=== PATIENT | female | born 1940 | race Asian ===

== ENCOUNTER 2019-03-20 11:30 | Inpatient (IN) | payer OTHER, MEDICAID ==
[~2019-03-20] VITALS: Ht 160 cm; Wt 61.2 kg
[2019-03-20 11:40] VITALS: BP_SYST 130
[2019-03-20] MEDS ORDERED: IPRATROPIUM/ALBUTEROL SULFATE 3 ML AMPUL.NEB (DUONEB) INH ONE ×3 (11:45→14:00)
[2019-03-20 12:06] LABS: HEMATOCRIT 39.5 % (36-48); HEMOGLOBIN 12.5 g/dL (12.0-16.0); MEAN CORPUSCULAR HEMOGLOBIN 21 pg (27-31); MEAN CORPUSCULAR HGB CONC 32 % (32-36); MEAN CORPUSCULAR VOLUME 65 fL (79.0-98.0); PLATELET COUNT (AUTO) 261 K/uL (130-430); RED BLOOD CELL COUNT(AUTO) 6.07 MIL/uL (4.2-6.2); RED CELL DISTRIBUTION WIDTH 15.6 % (9.0-15.0); WHITE BLOOD COUNT (AUTO) 6.8 K/uL (4.8-10.8)
[2019-03-20 12:48] LABS: ANION GAP 4 (5-15); CALCIUM 8.9 mg/dL (8.4-11.0); CHLORIDE 105 mmol/L (98-107); CREATININE 0.58 mg/dL (0.55-1.30); GLUCOSE 103 mg/dL (70-99); POTASSIUM 4.1 mmol/L (3.5-5.1); SODIUM SERUM 142 mmol/L (136-145); UREA NITROGEN, BLOOD 13 mg/dL (8-21)
[2019-03-20 12:54] LABS: ALANINE AMINOTRANSFERASE 31 U/L (12-78); ALBUMIN 2.9 g/dL (3.4-4.8); ASPARTATE AMINOTRANSFERASE 26 U/L (10-37); TOTAL BILIRUBIN 0.8 mg/dL (0.0-1.0)
[2019-03-20] MEDS ORDERED: PREDNISONE 20 MG TABLET PO ONE (13:15)
[2019-03-20] MEDS ORDERED: AZITHROMYCIN 250 MG TABLET PO ONE (13:15)
[2019-03-20] MEDS ORDERED: NACL 0.9% 1,000 ML IV ONE (13:15)
[2019-03-20 13:20] LABS: ATYPICAL LYMPHOCYTES % 0 % (0-0); BAND % (MANUAL) 0 % (0-6); BASOPHILS % (MANUAL) 0 % (0-2); EOSINOPHILS % (MANUAL) 2 % (0-7); LYMPHOCYTES % (MANUAL) 36 % (20-46); MONOCYTES % (MANUAL) 10 % (0-11)
[2019-03-20 13:26] LABS: BILIRUBIN,URINE NEGATIVE (NEGATIVE); CLARITY/URINE SLIGHTLY CLOUDY (CLEAR); COLOR,URINE YELLOW (YELLOW); GLUCOSE,URINE NEGATIVE (NEGATIVE); KETONES,URINE NEGATIVE (NEGATIVE); PH,URINE 7.5 (5.0-8.0); PROTEIN URINE NEGATIVE (NEGATIVE)
[2019-03-20 13:27] LABS: BLOOD, URINE NEGATIVE (NEGATIVE); LEUKOCYTE ESTERASE ,URINE 1+ (NEGATIVE); NITRITE, URINE NEGATIVE (NEGATIVE)
[2019-03-20 13:28] LABS: BACTERIA,URINE FEW /HPF (None Seen); RBC,URINE 0-3 /HPF (0-3); WBC,URINE 20-50 /HPF (0-3)
[2019-03-20 13:29] LABS: MUCUS,URINE 1+ /LPF (None Seen)
[2019-03-20] MEDS ORDERED: methylPREDNISolone SOD SUCC/PF 62.5 MG/ML VIAL IVP ONE (13:30)
[2019-03-20] MEDS ORDERED: AZITHROMYCIN 500 MG in NS 250 ML IV ONE (13:30)
[2019-03-20] MEDS ORDERED: AZITHROMYCIN 500 MG/VIAL (ZITHROMAX) IV ONE (13:53)
[2019-03-20 14:31] VITALS: BP_SYST 135
[2019-03-20] MEDS ORDERED: SENN-278 PO (14:37)
[2019-03-20] MEDS ORDERED: MEMA10TA PO (14:40)
[2019-03-20] MEDS ORDERED: DOCU-144 PO (14:40)
[2019-03-20] MEDS ORDERED: DEPAK250 PO (14:40)
[2019-03-20] MEDS ORDERED: OMEG1CAP PO (14:43)
[2019-03-20] MEDS ORDERED: SYN75 PO (14:43)
[2019-03-20] MEDS ORDERED: MULT9LIQ5 PO (14:43)
[2019-03-20] MEDS: D5/0.45 NS 1,000 ML IV SCH (16:21)
[2019-03-20] MEDS: cefTRIAXone 1 GM in D5W 50 ML IV SCH (17:58)
[2019-03-20 20:00] VITALS: BP_SYST 138
[2019-03-20 20:15] VITALS: BP_SYST 135
[2019-03-20] MEDS: methylPREDNISolone SOD SUCC 40 MG/ML VIAL IVP SCH (21:11)
[2019-03-20] MEDS ORDERED: IPRATROPIUM/ALBUTEROL SULFATE 120 PUFFS/4 GM INH INH SCH (22:00)
[2019-03-20] MEDS: IPRATROPIUM/ALBUTEROL SULFATE 3 ML AMPUL.NEB (DUONEB) INH PRN (23:24)
[2019-03-21 01:02] VITALS: BP_SYST 125
[2019-03-21] MEDS: D5/0.45 NS 1,000 ML IV SCH ×2 (03:44→21:46)
[2019-03-21] MEDS: methylPREDNISolone SOD SUCC 40 MG/ML VIAL IVP SCH ×3 (05:20→21:45)
[2019-03-21 07:40] VITALS: BP_SYST 147
[2019-03-21 07:41] LABS: BASOPHILS % (AUTO) 0.3 % (0.0-2.0); HEMATOCRIT 36.4 % (36-48); HEMOGLOBIN 11.5 g/dL (12.0-16.0); LYMPHOCYTES # (AUTO) 0.9 K/uL (1.0-5.5); LYMPHOCYTES % (AUTO) 20.7 % (20.5-51.5); MEAN CORPUSCULAR HEMOGLOBIN 21 pg (27-31); MEAN CORPUSCULAR HGB CONC 32 % (32-36); MEAN CORPUSCULAR VOLUME 65 fL (79.0-98.0); MONOCYTES # (AUTO) 0.2 K/uL (0.0-1.0); MONOCYTES % (AUTO) 4.5 % (1.7-9.3); NEUTROPHILS # (AUTO) 3.1 K/uL (1.8-7.7); NEUTROPHILS % (AUTO) 74.5 % (40.0-70.0); PLATELET COUNT (AUTO) 262 K/uL (130-430); RED BLOOD CELL COUNT(AUTO) 5.58 MIL/uL (4.2-6.2); RED CELL DISTRIBUTION WIDTH 15.7 % (9.0-15.0); WHITE BLOOD COUNT (AUTO) 4.1 K/uL (4.8-10.8)
[2019-03-21 07:50] LABS: ANION GAP 6 (5-15); CHLORIDE 105 mmol/L (98-107); CREATININE 0.57 mg/dL (0.55-1.30); GLUCOSE 188 mg/dL (70-99); POTASSIUM 3.8 mmol/L (3.5-5.1); SODIUM SERUM 140 mmol/L (136-145); UREA NITROGEN, BLOOD 11 mg/dL (8-21)
[2019-03-21] MEDS: AZITHROMYCIN 500 MG in NS 250 ML IV SCH (10:09)
[2019-03-21 10:14] LABS: FREE T4 (FREE THYROXINE) 1.2 ng/dl (0.8-1.5); THYROID STIMULATING HORMONE 0.71 uIu/mL (0.36-3.74)
[2019-03-21 11:07] VITALS: BP_SYST 125
[2019-03-21 15:41] VITALS: BP_SYST 132
[2019-03-21] MEDS: cefTRIAXone 1 GM in D5W 50 ML IV SCH (16:28)
[2019-03-21 20:00] VITALS: BP_SYST 134
[2019-03-22] VITALS: BP_SYST 132
[2019-03-22] MEDS: IPRATROPIUM/ALBUTEROL SULFATE 3 ML AMPUL.NEB (DUONEB) INH PRN (06:11)
[2019-03-22] MEDS: methylPREDNISolone SOD SUCC 40 MG/ML VIAL IVP SCH ×3 (06:20→23:20)
[2019-03-22 07:49] LABS: BASOPHILS % (AUTO) 0.4 % (0.0-2.0); HEMATOCRIT 38.2 % (36-48); HEMOGLOBIN 12.3 g/dL (12.0-16.0); MEAN CORPUSCULAR HEMOGLOBIN 21 pg (27-31); MEAN CORPUSCULAR HGB CONC 32 % (32-36); MEAN CORPUSCULAR VOLUME 65 fL (79.0-98.0); MONOCYTES # (AUTO) 0.3 K/uL (0.0-1.0); MONOCYTES % (AUTO) 6.6 % (1.7-9.3); NEUTROPHILS # (AUTO) 3.7 K/uL (1.8-7.7); PLATELET COUNT (AUTO) 311 K/uL (130-430); RED BLOOD CELL COUNT(AUTO) 5.89 MIL/uL (4.2-6.2); RED CELL DISTRIBUTION WIDTH 15.3 % (9.0-15.0)
[2019-03-22 07:52] VITALS: BP_SYST 123
[2019-03-22] MEDS: AZITHROMYCIN 500 MG in NS 250 ML IV SCH (08:03)
[2019-03-22 08:13] LABS: ANION GAP 3 (5-15); CALCIUM 8.3 mg/dL (8.4-11.0); CHLORIDE 103 mmol/L (98-107); CREATININE 0.55 mg/dL (0.55-1.30); GLUCOSE 173 mg/dL (70-99); POTASSIUM 3.3 mmol/L (3.5-5.1); SODIUM SERUM 134 mmol/L (136-145); UREA NITROGEN, BLOOD 10 mg/dL (8-21)
[2019-03-22] MEDS ORDERED: FUROSEMIDE 20 MG/2 ML VIAL IVP ONE (11:00)
[2019-03-22] MEDS: D5/0.45 NS 1,000 ML IV SCH (11:04)
[2019-03-22 11:11] VITALS: BP_SYST 137
[2019-03-22 15:36] VITALS: BP_SYST 144
[2019-03-22] MEDS: cefTRIAXone 1 GM in D5W 50 ML IV SCH (16:32)
[2019-03-22] MEDS ORDERED: POTASSIUM CHLORIDE 20 MEQ/PKT PACKET PO ONE (17:30)
[2019-03-22] MEDS: PANTOPRAZOLE SODIUM 40 MG/VIAL (PROTONIX) IVP SCH (18:15)
[2019-03-23] VITALS (7 sets, daily range): BP systolic 148–158
[2019-03-23] MEDS: methylPREDNISolone SOD SUCC 40 MG/ML VIAL IVP SCH ×3 (06:37→20:43)
[2019-03-23 08:32] LABS: ANION GAP 6 (5-15); CALCIUM 7.8 mg/dL (8.4-11.0); CHLORIDE 103 mmol/L (98-107); CREATININE 0.56 mg/dL (0.55-1.30); GLUCOSE 142 mg/dL (70-99); POTASSIUM 3.3 mmol/L (3.5-5.1); SODIUM SERUM 139 mmol/L (136-145); UREA NITROGEN, BLOOD 12 mg/dL (8-21)
[2019-03-23] MEDS: PANTOPRAZOLE SODIUM 40 MG/VIAL (PROTONIX) IVP SCH (09:13)
[2019-03-23] MEDS: AZITHROMYCIN 500 MG in NS 250 ML IV SCH (09:13)
[2019-03-23] MEDS: D5/0.45 NS 1,000 ML IV SCH (09:24)
[2019-03-23] MEDS: IPRATROPIUM/ALBUTEROL SULFATE 3 ML AMPUL.NEB (DUONEB) INH PRN (14:13)
[2019-03-23] MEDS: cefTRIAXone 1 GM in D5W 50 ML IV SCH (15:56)
[2019-03-23] MEDS ORDERED: POTASSIUM CHLORIDE 20 MEQ/PKT PACKET PO ONE (16:00)
[2019-03-24] MEDS: cloNIDine HCL 0.1 MG TABLET PO PRN (00:51)
[2019-03-24 00:59] VITALS: BP_SYST 150
[2019-03-24] MEDS: methylPREDNISolone SOD SUCC 40 MG/ML VIAL IVP SCH ×3 (06:48→22:23)
[2019-03-24 07:31] LABS: BASOPHILS % (AUTO) 0.4 % (0.0-2.0); EOSINOPHILS % (AUTO) 0.1 % (0.0-4.0); HEMATOCRIT 39.9 % (36-48); HEMOGLOBIN 12.3 g/dL (12.0-16.0); LYMPHOCYTES # (AUTO) 0.8 K/uL (1.0-5.5); LYMPHOCYTES % (AUTO) 10.2 % (20.5-51.5); MEAN CORPUSCULAR HEMOGLOBIN 20 pg (27-31); MEAN CORPUSCULAR HGB CONC 31 % (32-36); MEAN CORPUSCULAR VOLUME 65 fL (79.0-98.0); NEUTROPHILS # (AUTO) 5.7 K/uL (1.8-7.7); NEUTROPHILS % (AUTO) 76.3 % (40.0-70.0); PLATELET COUNT (AUTO) 395 K/uL (130-430); RED BLOOD CELL COUNT(AUTO) 6.13 MIL/uL (4.2-6.2); RED CELL DISTRIBUTION WIDTH 15.8 % (9.0-15.0); WHITE BLOOD COUNT (AUTO) 7.4 K/uL (4.8-10.8)
[2019-03-24 08:00] VITALS: BP_SYST 139
[2019-03-24] MEDS: D5/0.45 NS 1,000 ML IV SCH ×2 (08:00→22:33)
[2019-03-24 08:07] LABS: ANION GAP 3 (5-15); CALCIUM 8.2 mg/dL (8.4-11.0); CHLORIDE 103 mmol/L (98-107); CREATININE 0.44 mg/dL (0.55-1.30); GLUCOSE 176 mg/dL (70-99); POTASSIUM 3.6 mmol/L (3.5-5.1); SODIUM SERUM 134 mmol/L (136-145); UREA NITROGEN, BLOOD 15 mg/dL (8-21)
[2019-03-24] MEDS: PANTOPRAZOLE SODIUM 40 MG/VIAL (PROTONIX) IVP SCH (09:13)
[2019-03-24] MEDS: AZITHROMYCIN 500 MG in NS 250 ML IV SCH (09:13)
[2019-03-24] MEDS: POTASSIUM CHLORIDE 20 MEQ/PKT PACKET PO SCH (09:14)
[2019-03-24] MEDS ORDERED: amLODIPine BESYLATE 5 MG TABLET PO ONE (09:45)
[2019-03-24 12:37] VITALS: BP_SYST 153
[2019-03-24] MEDS: IPRATROPIUM/ALBUTEROL SULFATE 3 ML AMPUL.NEB (DUONEB) INH PRN (14:19)
[2019-03-24] MEDS: cefTRIAXone 1 GM in D5W 50 ML IV SCH (15:55)
[2019-03-24 16:49] VITALS: BP_SYST 146
[2019-03-24 20:00] VITALS: BP_SYST 136
[2019-03-25 00:17] VITALS: BP_SYST 115
[2019-03-25] MEDS: methylPREDNISolone SOD SUCC 40 MG/ML VIAL IVP SCH (06:45)
[2019-03-25 07:26] LABS: BASOPHILS % (AUTO) 0.3 % (0.0-2.0); HEMATOCRIT 44.1 % (36-48); LYMPHOCYTES # (AUTO) 1.3 K/uL (1.0-5.5); LYMPHOCYTES % (AUTO) 12.3 % (20.5-51.5); MEAN CORPUSCULAR HEMOGLOBIN 21 pg (27-31); MEAN CORPUSCULAR HGB CONC 32 % (32-36); MEAN CORPUSCULAR VOLUME 65 fL (79.0-98.0); MONOCYTES # (AUTO) 0.7 K/uL (0.0-1.0); MONOCYTES % (AUTO) 6.4 % (1.7-9.3); NEUTROPHILS # (AUTO) 8.4 K/uL (1.8-7.7); PLATELET COUNT (AUTO) 443 K/uL (130-430); RED BLOOD CELL COUNT(AUTO) 6.77 MIL/uL (4.2-6.2); WHITE BLOOD COUNT (AUTO) 10.4 K/uL (4.8-10.8)
[2019-03-25 07:53] LABS: ANION GAP 6 (5-15); CALCIUM 8.1 mg/dL (8.4-11.0); CHLORIDE 99 mmol/L (98-107); CREATININE 0.62 mg/dL (0.55-1.30); GLUCOSE 196 mg/dL (70-99); POTASSIUM 4.5 mmol/L (3.5-5.1); SODIUM SERUM 133 mmol/L (136-145); UREA NITROGEN, BLOOD 14 mg/dL (8-21)
[2019-03-25 08:00] VITALS: BP_SYST 151
[2019-03-25] MEDS: PANTOPRAZOLE SODIUM 40 MG/VIAL (PROTONIX) IVP SCH (09:24)
[2019-03-25] MEDS: AZITHROMYCIN 500 MG in NS 250 ML IV SCH (09:24)
[2019-03-25] MEDS: POTASSIUM CHLORIDE 20 MEQ/PKT PACKET PO SCH (09:24)
[2019-03-25 11:20] VITALS: BP_SYST 144
[2019-03-25 15:55] VITALS: BP_SYST 147
[2019-03-25] MEDS: cefTRIAXone 1 GM in D5W 50 ML IV SCH (16:58)
[2019-03-25 20:00] VITALS: BP_SYST 146
[2019-03-26] MEDS: D5/0.45 NS 1,000 ML IV SCH (00:43)
[2019-03-26 01:04] VITALS: BP_SYST 141
[2019-03-26] MEDS: methylPREDNISolone SOD SUCC 40 MG/ML VIAL IVP SCH (06:04)
[2019-03-26 07:32] LABS: INR 1.1 (0.8-1.2); PROTHROMBIN TIME 11.2 SECS (9.5-12.5)
[2019-03-26 07:42] LABS: ALANINE AMINOTRANSFERASE 128 U/L (12-78); ALBUMIN 2.4 g/dL (3.4-4.8); ANION GAP 4 (5-15); ASPARTATE AMINOTRANSFERASE 49 U/L (10-37); CHLORIDE 100 mmol/L (98-107); CREATININE 0.48 mg/dL (0.55-1.30); GLUCOSE 94 mg/dL (70-99); POTASSIUM 3.9 mmol/L (3.5-5.1); SODIUM SERUM 133 mmol/L (136-145); TOTAL BILIRUBIN 0.7 mg/dL (0.0-1.0); UREA NITROGEN, BLOOD 20 mg/dL (8-21)
[2019-03-26 08:00] VITALS: BP_SYST 106
[2019-03-26] MEDS: POTASSIUM CHLORIDE 20 MEQ/PKT PACKET PO SCH (09:10)
[2019-03-26] MEDS: PANTOPRAZOLE SODIUM 40 MG/VIAL (PROTONIX) IVP SCH (09:11)
[2019-03-26 11:14] VITALS: BP_SYST 151
[2019-03-26 15:13] VITALS: BP_SYST 146
[2019-03-26] MEDS: cefTRIAXone 1 GM in D5W 50 ML IV SCH (16:26)
[2019-03-26 17:44] VITALS: BP_SYST 151
[2019-03-26 20:00] VITALS: BP_SYST 149
[2019-03-27] VITALS: BP_SYST 138
[2019-03-27] MEDS: methylPREDNISolone SOD SUCC 40 MG/ML VIAL IVP SCH (05:46)
[2019-03-27 07:42] LABS: ANION GAP 5 (5-15); CALCIUM 8.5 mg/dL (8.4-11.0); CHLORIDE 98 mmol/L (98-107); CREATININE 0.49 mg/dL (0.55-1.30); GLUCOSE 81 mg/dL (70-99); POTASSIUM 4.5 mmol/L (3.5-5.1); SODIUM SERUM 134 mmol/L (136-145)
[2019-03-27 07:57] LABS: UREA NITROGEN, BLOOD 16 mg/dL (8-21)
[2019-03-27] MEDS: D5/0.45 NS 1,000 ML IV SCH (08:00)
[2019-03-27 08:01] LABS: HEMOGLOBIN 14.2 g/dL (12.0-16.0); MEAN CORPUSCULAR HEMOGLOBIN 20 pg (27-31); MEAN CORPUSCULAR HGB CONC 31 % (32-36); MEAN CORPUSCULAR VOLUME 66 fL (79.0-98.0); PLATELET COUNT (AUTO) 410 K/uL (130-430); RED BLOOD CELL COUNT(AUTO) 7.02 MIL/uL (4.2-6.2); RED CELL DISTRIBUTION WIDTH 15.9 % (9.0-15.0); WHITE BLOOD COUNT (AUTO) 12.3 K/uL (4.8-10.8)
[2019-03-27] MEDS: PANTOPRAZOLE SODIUM 40 MG/VIAL (PROTONIX) IVP SCH (08:08)
[2019-03-27] MEDS: POTASSIUM CHLORIDE 20 MEQ/PKT PACKET PO SCH (08:09)
[2019-03-27 08:10] VITALS: BP_SYST 172
[2019-03-27] MEDS: cloNIDine HCL 0.1 MG TABLET PO PRN (08:42)
[2019-03-27 08:43] LABS: ATYPICAL LYMPHOCYTES % 0 % (0-0); BAND % (MANUAL) 0 % (0-6); LYMPHOCYTES % (MANUAL) 26 % (20-46)
[2019-03-27 08:44] LABS: BASOPHILS % (MANUAL) 0 % (0-2); EOSINOPHILS % (MANUAL) 2 % (0-7); MONOCYTES % (MANUAL) 8 % (0-11)
[2019-03-27 12:30] VITALS: BP_SYST 132
[2019-03-27] MEDS: LEVOFLOXACIN 500 MG/D5W 100 ML IV SCH (14:44)
[2019-03-27 16:30] VITALS: BP_SYST 92
[2019-03-27 20:10] VITALS: BP_SYST 103
[2019-03-27] MEDS: IPRATROPIUM/ALBUTEROL SULFATE 3 ML AMPUL.NEB (DUONEB) INH PRN (22:03)
[2019-03-28 00:29] VITALS: BP_SYST 156
[2019-03-28] MEDS: IPRATROPIUM/ALBUTEROL SULFATE 3 ML AMPUL.NEB (DUONEB) INH PRN ×4 (02:17→20:02)
[2019-03-28] MEDS: methylPREDNISolone SOD SUCC 40 MG/ML VIAL IVP SCH (05:22)
[2019-03-28 07:34] LABS: ANION GAP 1 (5-15); CALCIUM 8.4 mg/dL (8.4-11.0); CHLORIDE 102 mmol/L (98-107); CREATININE 0.74 mg/dL (0.55-1.30); GLUCOSE 110 mg/dL (70-99); POTASSIUM 4.8 mmol/L (3.5-5.1); SODIUM SERUM 137 mmol/L (136-145); UREA NITROGEN, BLOOD 39 mg/dL (8-21)
[2019-03-28 07:37] LABS: EOSINOPHILS # (AUTO) 0.2 K/uL (0.0-0.4); MEAN CORPUSCULAR HEMOGLOBIN 20 pg (27-31)
[2019-03-28 07:58] LABS: BASOPHILS % (AUTO) 0.2 % (0.0-2.0); EOSINOPHILS % (AUTO) 1.6 % (0.0-4.0); HEMATOCRIT 40.1 % (36-48); HEMOGLOBIN 12.5 g/dL (12.0-16.0); LYMPHOCYTES # (AUTO) 2.9 K/uL (1.0-5.5); LYMPHOCYTES % (AUTO) 23.8 % (20.5-51.5); MEAN CORPUSCULAR HGB CONC 31 % (32-36); MEAN CORPUSCULAR VOLUME 65 fL (79.0-98.0); MONOCYTES # (AUTO) 1.2 K/uL (0.0-1.0); NEUTROPHILS % (AUTO) 64.4 % (40.0-70.0); PLATELET COUNT (AUTO) 395 K/uL (130-430); RED BLOOD CELL COUNT(AUTO) 6.18 MIL/uL (4.2-6.2); RED CELL DISTRIBUTION WIDTH 15.7 % (9.0-15.0); WHITE BLOOD COUNT (AUTO) 12.4 K/uL (4.8-10.8)
[2019-03-28 08:00] VITALS: BP_SYST 128
[2019-03-28] MEDS: PANTOPRAZOLE SODIUM 40 MG/VIAL (PROTONIX) IVP SCH (08:50)
[2019-03-28] MEDS: D5/0.45 NS 1,000 ML IV SCH ×2 (08:50→23:13)
[2019-03-28] MEDS: POTASSIUM CHLORIDE 20 MEQ/PKT PACKET PO SCH ×2 (08:50→08:55)
[2019-03-28 11:14] VITALS: BP_SYST 120
[2019-03-28] MEDS: LEVOFLOXACIN 500 MG/D5W 100 ML IV SCH (14:32)
[2019-03-28 15:25] VITALS: BP_SYST 137
[2019-03-28 20:50] VITALS: BP_SYST 105
[2019-03-29] MEDS: IPRATROPIUM/ALBUTEROL SULFATE 3 ML AMPUL.NEB (DUONEB) INH PRN ×3 (00:02→13:29)
[2019-03-29 00:11] VITALS: BP_SYST 109
[2019-03-29] MEDS: methylPREDNISolone SOD SUCC 40 MG/ML VIAL IVP SCH (05:06)
[2019-03-29 07:08] LABS: EOSINOPHILS # (AUTO) 0.1 K/uL (0.0-0.4); LYMPHOCYTES # (AUTO) 1.4 K/uL (1.0-5.5); NEUTROPHILS # (AUTO) 6.6 K/uL (1.8-7.7); RED CELL DISTRIBUTION WIDTH 15.8 % (9.0-15.0); WHITE BLOOD COUNT (AUTO) 8.9 K/uL (4.8-10.8)
[2019-03-29 07:27] LABS: BASOPHILS % (AUTO) 0.2 % (0.0-2.0); EOSINOPHILS % (AUTO) 1.3 % (0.0-4.0); HEMATOCRIT 38.7 % (36-48); HEMOGLOBIN 12.2 g/dL (12.0-16.0); MEAN CORPUSCULAR HEMOGLOBIN 20 pg (27-31); MEAN CORPUSCULAR HGB CONC 32 % (32-36); MEAN CORPUSCULAR VOLUME 65 fL (79.0-98.0); MONOCYTES # (AUTO) 0.8 K/uL (0.0-1.0); MONOCYTES % (AUTO) 8.7 % (1.7-9.3); NEUTROPHILS % (AUTO) 73.8 % (40.0-70.0); PLATELET COUNT (AUTO) 342 K/uL (130-430); RED BLOOD CELL COUNT(AUTO) 5.96 MIL/uL (4.2-6.2)
[2019-03-29 07:44] LABS: ANION GAP 3 (5-15); CALCIUM 7.9 mg/dL (8.4-11.0); CHLORIDE 101 mmol/L (98-107); CREATININE 0.51 mg/dL (0.55-1.30); GLUCOSE 117 mg/dL (70-99); SODIUM SERUM 136 mmol/L (136-145); UREA NITROGEN, BLOOD 16 mg/dL (8-21)
[2019-03-29 08:00] VITALS: BP_SYST 121
[2019-03-29] MEDS: POTASSIUM CHLORIDE 20 MEQ/PKT PACKET PO SCH (08:22)
[2019-03-29] MEDS: PANTOPRAZOLE SODIUM 40 MG/VIAL (PROTONIX) IVP SCH (08:22)
[2019-03-29 08:57] VITALS: BP_SYST 109
[2019-03-29 11:09] VITALS: BP_SYST 120
[2019-03-29] MEDS ORDERED: LEVOFLOXACIN 500 MG TABLET PO ONE (11:15)
[2019-03-29] MEDS ORDERED: LEVAQUIN PO (11:30)
[2019-03-29 13:18] VITALS: BP_SYST 98
[2019-03-30] MEDS ORDERED: LEVOFLOXACIN 500 MG TABLET PO SCH (10:00)
== END 2019-03-29 15:00 | DRG 177 ==
LOC: SED 11:30 → SMU 14:14
PROVIDERS: ADMIT Internal Medicine; ATTEND Internal Medicine
DX: J69.0 Pneumonitis due to inhalation of food and vomit (principal); E43 Unspecified severe protein-calorie malnutrition; I50.31 Acute diastolic (congestive) heart failure; N39.0 Urinary tract infection, site not specified; G93.49 Other encephalopathy; E03.9 Hypothyroidism, unspecified; F03.90 Unspecified dementia, unspecified severity, without behavioral disturbance, psychotic disturbance, mood disturbance, and anxiety; G40.909 Epilepsy, unspecified, not intractable, without status epilepticus; E87.6 Hypokalemia; Z66 Do not resuscitate; R13.10 Dysphagia, unspecified; R62.7 Adult failure to thrive; B96.20 Unspecified Escherichia coli [E. coli] as the cause of diseases classified elsewhere; Z68.23 Body mass index [BMI] 23.0-23.9, adult; Z87.01 Personal history of pneumonia (recurrent); I11.0 Hypertensive heart disease with heart failure
CPT/HCPCS: 36415; 70450-TC; 70551; 71045; 80048; 80053; 81000-TC; 83605; 83735-TC; 83880; 84436; 84439; 84443-TC; 85007; 85025; 85027; 85610-TC; 85730-TC; 86710; 87040-TC; 87081; 87086; 87186-TC; 92610-GN; 93306; 93880; 94640; 94760; 95816; 96361; 96374; 97110-GP; 97112-GP; 97530-GP; 99285; C9113; J0456; J0696; J1030; J1940; J1956; J2930; J7050; J7060; J7512; J7620; Q0144